=== PATIENT | male | born 1955 | race Two or more races ===

== ENCOUNTER 2017-04-26 09:25 | Day surgery (SDC) | payer OTHER ==
[2017-04-26] MEDS ORDERED: SEVOFLURANE 250 ML BOTTLE IH ONE (09:26)
[2017-04-26] MEDS ORDERED: ONDANSETRON 4 MG/2 ML VIAL IV ONE (09:26)
[2017-04-26] MEDS ORDERED: NEOSTIGMINE METHYLSULFATE 10 MG/10 ML VIAL IV ONE (09:26)
[2017-04-26] MEDS ORDERED: LIDOCAINE HCL 1% 20 ML VIAL MC ONE (09:26)
[2017-04-26] MEDS ORDERED: GLYCOPYRROLATE 0.2 MG/ML VIAL MC ONE (09:26)
[2017-04-26] MEDS ORDERED: KETOROLAC TROMETHAMINE 30 MG INJ IM ONE (09:26)
[2017-04-26] MEDS ORDERED: PROPOFOL 200 MG/20 ML BOTTLE IV ONE (09:26)
[2017-04-26] MEDS ORDERED: DEXAMETHASONE SOD PHOSPHATE 4 MG INJ IV ONE (09:26)
[2017-04-26] MEDS ORDERED: IV LACTATED RINGERS SOLUTION 1,000 ML BAG MC ONE (09:26)
[2017-04-26] MEDS ORDERED: CEFAZOLIN 1 G VIAL MC ONE (09:26)
[2017-04-26] MEDS ORDERED: BUPIVACAINE/EPI PF 0.5% 10 ML VIAL ONE (10:21)
[2017-04-26] MEDS ORDERED: POLYMYXIN B SULFATE 500,000 UNITS, BACITRACIN 50,000 UNITS, NORMAL SALINE 20 ML MC ONE ×3 (10:30)
[2017-04-26] MEDS ORDERED: FENTANYL CITRATE 100 MCG/2 ML AMPUL ONE ×2 (10:52→13:45)
[2017-04-26] MEDS ORDERED: ROCURONIUM BROMIDE 50 MG/5 ML VIAL ONE ×2 (10:52→12:14)
[2017-04-26] MEDS ORDERED: MIDAZOLAM HCL 2 MG/2 ML VIAL ONE (10:52)
[2017-04-26] MEDS ORDERED: OXYCODONE/APAP 5-325 MG TABLET ONE (14:39)
== END 2017-04-26 15:15 | disposition home or self-care (01) ==
LOC: DS 09:25
PROVIDERS: ATTEND Orthopaedic Surgery
DX: M75.111 Incomplete rotator cuff tear or rupture of right shoulder, not specified as traumatic (principal); M75.41 Impingement syndrome of right shoulder; M19.011 Primary osteoarthritis, right shoulder; M75.51 Bursitis of right shoulder; I10 Essential (primary) hypertension; R00.1 Bradycardia, unspecified
CPT/HCPCS: 23120; 23130; 23412; A4649; J0690; J1100; J1885; J2250; J2405; J2710; J3010; J3490 ×8; J7120; A4565; C1713